=== PATIENT | female | born 1945 | race Asian ===

== ENCOUNTER 2017-01-23 10:19 | Emergency (ER) | payer MEDICARE ==
[~2017-01-23] VITALS: Ht 142.2 cm; Wt 45.5 kg
[2017-01-23] MEDS ORDERED: METF500T4 PO (10:27)
[2017-01-23] MEDS ORDERED: ATEN25 PO (10:27)
[2017-01-23] MEDS ORDERED: AMLO-511 PO (10:27)
[2017-01-23] MEDS ORDERED: GLIM2 PO (10:27)
[2017-01-23] MEDS ORDERED: ATOR10TA84 PO (10:27)
[2017-01-23 11:37] LABS: ANION GAP 15 mmol/L (8-16); CALCIUM, TOTAL 7.7 mg/dL (8.8-10.5); CARBON DIOXIDE 20 mmol/L (22-29); CHLORIDE 104 mmol/L (98-107); CREATININE 1.56 mg/dL (0.60-1.30); GLOMERULAR FILTR. RATE CALC 33 mL/min (>60); POTASSIUM 4.6 mmol/L (3.5-5.1); SODIUM SERUM 139 mmol/L (136-145); UREA NITROGEN, BLOOD 32 mg/dL (7-18)
[2017-01-23 11:38] LABS: BASOPHILS % (AUTO) 0.3 % (0.0-2.0); EOSINOPHILS % (AUTO) 0.3 % (1.0-6.0); HEMATOCRIT 36.1 % (36-46); HEMOGLOBIN 12.2 g/dL (12.0-16.0); LYMPHOCYTES # (AUTO) 1.3 K/uL (1.0-4.8); LYMPHOCYTES % (AUTO) 10.3 % (22.0-44.0); MEAN CORPUSCULAR HEMOGLOBIN 28.6 pg (26.0-34.0); MEAN CORPUSCULAR HGB CONC 33.6 G/dL (31.0-37.0); MEAN CORPUSCULAR VOLUME 85 fL (80-100); MONOCYTES # (AUTO) 0.4 K/uL (0.1-1.0); MONOCYTES % (AUTO) 3.4 % (2.0-9.0); NEUTROPHILS # (AUTO) 10.5 K/uL (1.8-7.7); PLATELET COUNT (AUTO) 231 K/uL (150-450); RED BLOOD CELL COUNT(AUTO) 4.26 MIL/uL (4.00-5.20); RED CELL DISTRIBUTION WIDTH 13.4 % (11.5-14.5); WHITE BLOOD COUNT (AUTO) 12.2 K/uL (4.5-11.0)
[2017-01-23 11:45] LABS: NEUTROPHILS % (AUTO) 85.7 % (40.0-70.0)
[2017-01-23 11:48] LABS: PROTHROMBIN TIME 10.2 SEC (9.4-11.6)
[2017-01-23 12:03] LABS: ALANINE AMINOTRANSFERASE 16 U/L (12-78); ALBUMIN 3.2 g/dL (3.4-5.0); ASPARTATE AMINOTRANSFERASE 14 U/L (15-37); B-TYPE NATRIURETIC PEPTIDE 83 pg/mL (0-100); BILIRUBIN,TOTAL 0.5 mg/dL (0.1-1.0); CREATINE KINASE, TOTAL 78 U/L (26-192); TOTAL PROTEIN, SERUM 5.9 g/dL (6.4-8.2)
[2017-01-23 12:04] LABS: CREATINE KINASE MB < 0.5 ng/mL (0-5)
[2017-01-23 12:42] LABS: ADD UA MICROSCOPIC YES; APPEARANCE,URINE CLOUDY (CLEAR); GLUCOSE, URINE (UA) 250 mg/dL (NEGATIVE); KETONES,URINE NEGATIVE (NEGATIVE); LEUKOCYTE ESTERASE ,URINE SMALL (NEGATIVE); OCCULT BLOOD,URINE NEGATIVE (NEGATIVE); PH,URINE 5.5 (5.0-8.0); PROTEIN,URINE TRACE (NEGATIVE)
[2017-01-23 12:59] LABS: RBC,URINE 0-2 /HPF (0-2); RENAL EPITHELIAL CELLS,URINE Few /LPF (None Seen); SQUAMOUS EPITHELIAL CELL,UR Few /LPF (None Seen)
[2017-01-23 15:07] LABS: GLUCOSE,POINT OF CARE 271 MG/DL (70-110)
[2017-01-23] MEDS ORDERED: ASPIRIN 81 MG CHEWABLE TABLET PO ONE (15:45)
[2017-01-23 16:39] VITALS: BP 150/72
== END 2017-01-23 16:40 | disposition short-term general hospital (02) ==
LOC: EMS 10:22
DX: G45.9 Transient cerebral ischemic attack, unspecified (principal); E11.9 Type 2 diabetes mellitus without complications; E78.00 Pure hypercholesterolemia, unspecified; I10 Essential (primary) hypertension
CPT/HCPCS: 70450; 82962; 87086; 93005; 99285

== ENCOUNTER 2019-03-24 10:58 | Emergency (ER) | payer MEDICARE ==
[~2019-03-24] VITALS: Ht 142.2 cm; Wt 44.5 kg
[~2019-03-24 10:58] MED LIST: AMLO5TAB9 PO; ATEN25TA PO; ATOR10TA84 PO; GLIM2 PO; METF-960 PO
[2019-03-24] MEDS ORDERED: UNKNOWN HTN MED PO (11:10)
[2019-03-24] MEDS ORDERED: LOSA50TA64 PO (11:10)
[2019-03-24] MEDS ORDERED: LOSARTAN POTASSIUM 50 MG TABLET PO ONE (11:45)
[2019-03-24] MEDS ORDERED: AmLODIPine BESYLATE 5 MG TABLET PO ONE (11:45)
[2019-03-24] MEDS ORDERED: ATENOLOL 25 MG TABLET PO ONE (11:45)
[2019-03-24] MEDS: HydrOXYzine PAMOATE 50 MG CAPSULE PO ONE ×3 (11:47→13:06)
[2019-03-24 11:57] LABS: BASOPHILS % (AUTO) 0.3 % (0.0-2.0); EOSINOPHILS % (AUTO) 0.8 % (1.0-6.0); HEMOGLOBIN 11.8 g/dL (12.0-16.0); LYMPHOCYTES # (AUTO) 1.8 K/uL (1.0-4.8); LYMPHOCYTES % (AUTO) 26.8 % (22.0-44.0); MEAN CORPUSCULAR HEMOGLOBIN 28.4 pg (26.0-34.0); MEAN CORPUSCULAR HGB CONC 32.8 G/dL (31.0-37.0); MEAN CORPUSCULAR VOLUME 87 fL (80-100); MONOCYTES # (AUTO) 0.4 K/uL (0.1-1.0); MONOCYTES % (AUTO) 6.6 % (2.0-9.0); NEUTROPHILS # (AUTO) 4.4 K/uL (1.8-7.7); NEUTROPHILS % (AUTO) 65.5 % (40.0-70.0); PLATELET COUNT (AUTO) 198 K/uL (150-450); RED BLOOD CELL COUNT(AUTO) 4.15 MIL/uL (4.00-5.20)
[2019-03-24 12:23] LABS: CALCIUM, TOTAL 8.6 mg/dL (8.8-10.5); CREATININE 1.4 mg/dL (0.60-1.30); POTASSIUM 4.3 mmol/L (3.5-5.1)
[2019-03-24] MEDS ORDERED: CloNIDine HCL 0.2 MG TABLET PO ONE (14:00)
[2019-03-24 15:26] VITALS: BP 149/86
== END 2019-03-24 15:27 | disposition home or self-care (01) ==
LOC: EMS 10:59
DX: E11.65 Type 2 diabetes mellitus with hyperglycemia (principal); I10 Essential (primary) hypertension; F41.9 Anxiety disorder, unspecified; E78.00 Pure hypercholesterolemia, unspecified; Z79.84 Long term (current) use of oral hypoglycemic drugs
CPT/HCPCS: 93005

== ENCOUNTER 2019-04-04 07:06 | Emergency (ER) | payer MEDICARE ==
[~2019-04-04] VITALS: Ht 142.2 cm; Wt 43.2 kg
[~2019-04-04 07:06] MED LIST changes: +LOSA50TA64 PO; +UNKNOWN HTN MED PO
[2019-04-04] MEDS: ACETAMINOPHEN 325 MG TABLET PO ONE ×2 (07:33→07:34)
[2019-04-04 07:37] LABS: GLUCOSE,POINT OF CARE 187 MG/DL (70-110)
[2019-04-04 07:55] LABS: BASOPHILS % (AUTO) 0.5 % (0.0-2.0); EOSINOPHILS % (AUTO) 1.2 % (1.0-6.0); HEMATOCRIT 37.2 % (36-46); HEMOGLOBIN 12.5 g/dL (12.0-16.0); LYMPHOCYTES # (AUTO) 1.3 K/uL (1.0-4.8); LYMPHOCYTES % (AUTO) 24.9 % (22.0-44.0); MEAN CORPUSCULAR HEMOGLOBIN 29.2 pg (26.0-34.0); MEAN CORPUSCULAR HGB CONC 33.5 G/dL (31.0-37.0); MEAN CORPUSCULAR VOLUME 87 fL (80-100); MONOCYTES # (AUTO) 0.3 K/uL (0.1-1.0); MONOCYTES % (AUTO) 6.4 % (2.0-9.0); NEUTROPHILS # (AUTO) 3.6 K/uL (1.8-7.7); PLATELET COUNT (AUTO) 196 K/uL (150-450); RED BLOOD CELL COUNT(AUTO) 4.27 MIL/uL (4.00-5.20); RED CELL DISTRIBUTION WIDTH 13.8 % (11.5-14.5)
[2019-04-04 08:03] LABS: CALCIUM, TOTAL 8.8 mg/dL (8.8-10.5); CREATININE 1.32 mg/dL (0.60-1.30); POTASSIUM 4.1 mmol/L (3.5-5.1)
[2019-04-04 08:30] VITALS: BP 158/87
== END 2019-04-04 08:38 | disposition home or self-care (01) ==
LOC: EMS 07:07
DX: I10 Essential (primary) hypertension (principal); E11.9 Type 2 diabetes mellitus without complications; E78.00 Pure hypercholesterolemia, unspecified; Z79.84 Long term (current) use of oral hypoglycemic drugs
CPT/HCPCS: 93005

== ENCOUNTER 2023-04-20 10:44 | Emergency (ER) | payer MEDICARE ==
[~2023-04-20] VITALS: Ht 142.2 cm; Wt 40.9 kg
[~2023-04-20 10:44] MED LIST changes: +AMLO-257 PO; -AMLO5TAB9 PO; +ATEN-73 PO; -ATEN25TA PO; +ATOR10TA PO; -ATOR10TA84 PO; +LOSA-382 PO; -LOSA50TA64 PO; +METF-1211 PO; -METF-960 PO
[2023-04-20 10:49] VITALS: TEMP 98.4
[2023-04-20 12:44] LABS: APPEARANCE,URINE CLEAR (CLEAR); BILIRUBIN,URINE NEGATIVE (NEGATIVE); COLOR,URINE COLORLESS (YELLOW); GLUCOSE, URINE (UA) >=1000 mg/dL (NEGATIVE); KETONES,URINE NEGATIVE (NEGATIVE); LEUKOCYTE ESTERASE ,URINE NEGATIVE (NEGATIVE); NITRATE,URINE NEGATIVE (NEGATIVE); OCCULT BLOOD,URINE NEGATIVE (NEGATIVE); PH,URINE 5.5 (5.0-8.0); PROTEIN,URINE 30-70 mg/dL (NEGATIVE); SPECIFIC GRAVITIY, URINE 1.006 (1.003-1.030); UROBILINOGEN,URINE <=1.0 mg/dL (<=1.0)
[2023-04-20 12:46] LABS: BACTERIA,URINE None Seen /HPF (None Seen); RBC,URINE None Seen /HPF (0-2); WBC,URINE None Seen /HPF (0-5)
[2023-04-20 12:47] LABS: BASOPHILS % (AUTO) 0.7 % (0.0-2.0); HEMATOCRIT 35.8 % (36-46); HEMOGLOBIN 11.7 g/dL (12.0-16.0); LYMPHOCYTES # (AUTO) 1.4 K/uL (1.0-4.8); LYMPHOCYTES % (AUTO) 22.3 % (22.0-44.0); MEAN CORPUSCULAR HEMOGLOBIN 28.4 pg (26.0-34.0); MEAN CORPUSCULAR HGB CONC 32.7 G/dL (31.0-37.0); MEAN CORPUSCULAR VOLUME 87 fL (80-100); MONOCYTES # (AUTO) 0.4 K/uL (0.1-1.0); MONOCYTES % (AUTO) 7.4 % (2.0-9.0); NEUTROPHILS % (AUTO) 66.6 % (40.0-70.0); PLATELET COUNT (AUTO) 207 K/uL (150-450); RED BLOOD CELL COUNT(AUTO) 4.12 MIL/uL (4.00-5.20); RED CELL DISTRIBUTION WIDTH 14.7 % (11.5-14.5); WHITE BLOOD COUNT (AUTO) 6.1 K/uL (4.5-11.0)
[2023-04-20 12:57] LABS: CALCIUM, TOTAL 9.5 mg/dL (8.8-10.5); CREATININE 1.9 mg/dL (0.60-1.30); POTASSIUM 3.9 mmol/L (3.5-5.1)
[2023-04-20 13:02] LABS: ALBUMIN 3.4 g/dL (3.4-5.0); BILIRUBIN,TOTAL 0.4 mg/dL (0.1-1.0); TOTAL PROTEIN, SERUM 7.8 g/dL (6.4-8.2)
[2023-04-20 13:07] LABS: TROPONIN I-HIGH SENSITIVITY 5 ng/L (<51)
[2023-04-20 14:16] VITALS: BP 161/72; PULSE 72; RESP 16
== END 2023-04-20 14:35 | disposition home or self-care (01) ==
LOC: EMS 10:44
DX: I10 Essential (primary) hypertension (principal); E11.9 Type 2 diabetes mellitus without complications; E78.00 Pure hypercholesterolemia, unspecified
CPT/HCPCS: 70450; 80053; 81001; 82962; 83880; 84484; 85025; 93005; 99284; 99285

== ENCOUNTER 2023-12-11 05:58 | Emergency (ER) | payer MEDICARE ==
[~2023-12-11] VITALS: Ht 142.2 cm; Wt 91.0 kg
[2023-12-11 06:02] VITALS: TEMP 97.4
[2023-12-11] MEDS: SODIUM CHLORIDE 0.9% 1,000 ML IV ONE (06:23)
[2023-12-11 06:25] LABS: GLUCOMETER DEV NAME(LOC) ER.7; GLUCOSE,POINT OF CARE 238 MG/DL (70-110)
[2023-12-11 06:35] VITALS: BP 113/57; PULSE 94; RESP 22
[2023-12-11 06:36] LABS: BASOPHILS % (AUTO) 0.5 % (0.0-2.0); EOSINOPHILS % (AUTO) 1.4 % (1.0-6.0); HEMATOCRIT 28.4 % (36-46); HEMOGLOBIN 9.5 g/dL (12.0-16.0); LYMPHOCYTES # (AUTO) 1.2 K/uL (1.0-4.8); LYMPHOCYTES % (AUTO) 12.9 % (22.0-44.0); MEAN CORPUSCULAR HEMOGLOBIN 29.2 pg (26.0-34.0); MEAN CORPUSCULAR HGB CONC 33.4 G/dL (31.0-37.0); MEAN CORPUSCULAR VOLUME 87 fL (80-100); MONOCYTES # (AUTO) 0.6 K/uL (0.1-1.0); MONOCYTES % (AUTO) 6.4 % (2.0-9.0); NEUTROPHILS # (AUTO) 7.6 K/uL (1.8-7.7); NEUTROPHILS % (AUTO) 78.8 % (40.0-70.0); PLATELET COUNT (AUTO) 172 K/uL (150-450); RED BLOOD CELL COUNT(AUTO) 3.26 MIL/uL (4.00-5.20); RED CELL DISTRIBUTION WIDTH 14.4 % (11.5-14.5); WHITE BLOOD COUNT (AUTO) 9.6 K/uL (4.5-11.0)
[2023-12-11 06:48] LABS: CALCIUM, TOTAL 8.5 mg/dL (8.8-10.5); CREATININE 2.53 mg/dL (0.60-1.30); POTASSIUM 4.5 mmol/L (3.5-5.1)
[2023-12-11 06:56] LABS: TROPONIN I-HIGH SENSITIVITY 8 ng/L (<51)
== END 2023-12-11 08:20 | disposition home or self-care (01) ==
LOC: EMS 05:58
DX: I12.9 Hypertensive chronic kidney disease with stage 1 through stage 4 chronic kidney disease, or unspecified chronic kidney disease (principal); E11.22 Type 2 diabetes mellitus with diabetic chronic kidney disease; N18.9 Chronic kidney disease, unspecified; D63.1 Anemia in chronic kidney disease; R53.1 Weakness; R53.83 Other fatigue
CPT/HCPCS: 71045; 80048; 82962; 84484; 85025; 93005; 96360; 99285; 36415-L1; 36415-TC